=== PATIENT | male | born 1985 | race Two or more races ===

== ENCOUNTER 2021-02-10 10:04 | Emergency (ER) | payer OTHER ==
[2021-02-10 13:00] VITALS: BP 126/72
== END 2021-02-10 13:38 | disposition home or self-care (01) ==
LOC: ER 10:04
DX: S02.2XXA Fracture of nasal bones, initial encounter for closed fracture (principal); W18.39XA Other fall on same level, initial encounter; Y93.89 Activity, other specified; Y92.89 Other specified places as the place of occurrence of the external cause; Y99.8 Other external cause status
CPT/HCPCS: 70160